=== PATIENT | female | born 1960 | race Hispanic/Latino ===

== ENCOUNTER 2019-08-11 16:15 | Emergency (ER) | payer OTHER, SELFPAY | END 2019-08-11 17:18 | disposition home or self-care (01) | LOC: EDH 16:15 | DX: N64.4 Mastodynia (principal); Z87.442 Personal history of urinary calculi; Z98.51 Tubal ligation status; Z90.49 Acquired absence of other specified parts of digestive tract | CPT/HCPCS: 99281 ==